=== PATIENT | female | born 1970 | race Caucasian/White ===

== ENCOUNTER 2017-04-17 05:59 | Emergency (ER) | payer SELFPAY ==
[2017-04-17 06:09] VITALS: BP 148/100
--- NOTE | 2017-04-17 06:29 | PHYS DOC ---
General Chief Complaint: SKIN PROBLEM Stated Complaint: DRY HANDS AND ALL OVER BODY Time Seen by MD: 06:04 Source: patient Exam Limitations: no limitations Problems: History of Present Illness Initial Comments Patient is a 47-year-old female who comes to the ED complaining of itchy dry hands. Patient states she is been diagnosed with eczema and has seen dermatology in the past she continues to use cerave topical moisturizer cream. She states this usually keeps her symptoms under control but recently her hands have become more dry and itchy and have begun cracking and bleeding at a few knuckles. She says typically a Medrol Dosepak and topical steroids help her symptoms. She does continue to smoke cigarettes and understands that this does not help her symptoms in any way. She denies any purulent discharge, worsening of pain, or other symptoms consistent with infection such as fever chills sweats or myalgias. Her tetanus is not up-to-date. Onset: other Severity: moderate Pain/Injury Location: bilateral hand, bilateral thumb, bilateral 2nd finger, bilateral 3rd finger, bilateral 4th finger, bilateral 5th finger, bilateral other Method of Injury: other Modifying Factors: improves with cold therapy Allergies: Coded Allergies: No Known Allergies (Verified Allergy, Unknown, 04/17/17) Past Medical History Medical History: other (COPD, eczema) Surgical History: noncontributory Social History Smoker: cigarettes Alcohol: occasionally Drugs: none Review of Systems Constitutional: denies chills, denies fever, denies malaise EENTM: denies nose congestion, denies throat swelling, denies mouth swelling Respiratory: denies cough, denies shortness of breath, denies wheezing Cardiovascular: denies chest pain, denies palpitations, denies syncope Gastrointestinal: denies abdominal pain, denies diarrhea, denies nausea, denies vomiting Skin: see HPI Psychiatric/Neurological: denies headache, denies numbness, denies paresthesia Physical Exam General Appearance: no apparent distress HEENT: normal ENT inspection Neck: non-tender, supple Cardiovascular/Respiratory: normal peripheral pulses, no respiratory distress Hand: no evidence of injury (dry scaly skin with mild erythema a few scabbed areas between the knuckles consistent with eczema exacerbation there is no evidence of active infection) Neurologic/Tendon: normal sensation, normal motor functions, normal tendon functions, responds to pain, no evidence tendon injury Psychiatric: alert, oriented x 3 Skin: warm/dry (hands as above) Departure Time of Disposition: 06:26 Disposition: 01 HOME, SELF-CARE Diagnosis: eczema, tobaccoism Condition: GOOD Patient Instructions: Eczema, Smoking Hazards, VIS, Tetanus, Diphtheria (Td); Tetanus, Diphtheria, Pertussis (Tdap) - [facility] [place] Additional Instructions: Stop smoking seek medical assistance as necessary. Continue topical moisturizers, (cerave). [id number] cetirizine for morning symptoms, may consider Benadryl at bedtime. Prescriptions: Triamcinolone 0.5% cream, prednisone 20 mg, hydroxyzine 25 mg Per discussion ED staff will provide you information regarding [facility] and [facility]. Use these resources for your follow-up visit and to establish an continue health maintenance. Follow-up with in one to 2 weeks for recheck. Return to the ED with new or changing symptoms MUNIRA SALOMON DO Apr 17, 2017 06:29
[2017-04-17] MEDS ORDERED: DIPHTH,PERTUSS(ACELL),TET TOX 0.5 ML DISP.SYRIN. VAX IM ONE (06:30)
== END 2017-04-17 06:45 | disposition home or self-care (01) ==
LOC: ER 05:59
DX: L30.9 Dermatitis, unspecified (principal); J44.9 Chronic obstructive pulmonary disease, unspecified; F17.210 Nicotine dependence, cigarettes, uncomplicated
CPT/HCPCS: 90471; 90715; 99283-25

== ENCOUNTER 2017-04-25 10:57 | Emergency (ER) | payer SELFPAY ==
--- NOTE | 2017-04-25 11:45 | ED.ADGEN ---
Past History Past Medical History: No Pertinent History Additional Past Medical Histor: chronic skin rashes Past Surgical History: No Surgical History Smoking: Cigarettes Alcohol Use: None Drug Use: None Social History Narrative: admits to trying methamphetamines in the past but denies any recent use Adult General Chief Complaint Chief Complaint Skin rash [facility] Patient is a 47 year old female who presents with chronic skin rash that's pruritic involving the face and upper and lower extremities she picks at multiple lesions this has been going on for weeks to months or longer. She was seen in the ED 1 week ago started on prednisone for 5 days which seemed to help at the symptoms are worsening again. The skin lesions look to be obviously related to possible methamphetamine use which she denies. There is some dry skin to the palms of the hands. Denies fever chills or sweats. Denies chest pain or shortness of breath. Denies any sick contacts. Review of Systems Review of Systems Constitutional: Denies fever or chills [] Eyes: Denies change in visual acuity, redness, or eye pain [] HENT: Denies nasal congestion or sore throat [] Respiratory: Denies cough or shortness of breath [] Cardiovascular: No additional information not addressed in HPI [] GI: Denies abdominal pain, nausea, vomiting, bloody stools or diarrhea [] : Denies dysuria or hematuria [] Musculoskeletal: Denies back pain or joint pain [] Integument: Denies rash or skin lesions [] Neurologic: Denies headache, focal weakness or sensory changes [] Endocrine: Denies polyuria or polydipsia [] Allergies Allergies Allergies Coded Allergies Type Severity Reaction Last Updated Verified No Known Allergies Allergy Unknown 04/17/17 Yes Physical Exam Physical Exam Constitutional: Well developed, appears much older than stated age, no acute distress, non-toxic appearance. [] HENT: Normocephalic, atraumatic, bilateral external ears normal, oropharynx moist, no oral exudates, nose normal. [] Eyes: PERRLA, EOMI, conjunctiva normal, no discharge. [] Neck: Normal range of motion, no tenderness, supple, no stridor. [] Cardiovascular:Heart rate regular rhythm, no murmur [] Lungs & Thorax: Bilateral breath sounds clear to auscultation [] Abdomen: Bowel sounds normal, soft, no tenderness, no masses, no pulsatile masses. [] Skin: Warm, dry, no erythema, multiple skin excoriations involving the upper and lower lower extremities and face consistent with methamphetamine abuse. Some dry skin to the palms of the hand with dried skin and irritated in the webspaces. [] Back: No tenderness, no CVA tenderness. [] Extremities: No tenderness, no cyanosis, no clubbing, ROM intact, no edema. [] Neurologic: Alert and oriented X 3, normal motor function, normal sensory function, no focal deficits noted. [] Psychologic: Affect normal, judgement normal, mood normal. [] EKG EKG [] Radiology/Procedures Radiology/Procedures [] Course & Med Decision Making Course & Med Decision Making Pertinent Labs and Imaging studies reviewed. (See chart for details) We will prescribe Benadryl and Elimite cream. [] Final Impression Final Impression Dermatitis, multiple skin lesions upper or lower extremities and face [] Problems: Dragon Disclaimer Dragon Disclaimer This electronic medical record was generated, in whole or in part, using a voice recognition dictation system. BUNNY FERREIRA MD Apr 25, 2017 11:45
[2017-04-25] MEDS ORDERED: HYDR99LO2 TP (11:54)
[2017-04-25] MEDS ORDERED: DIPH25CA58 PO (11:54)
[2017-04-25] MEDS ORDERED: PERM60CR11 TP (11:54)
[2017-04-25] MEDS ORDERED: diphenhydrAMINE HCL 25 MG CAPSULE PO ONE ×2 (11:59→12:30)
[2017-04-25 12:05] VITALS: BP 139/84
== END 2017-04-25 12:05 | disposition home or self-care (01) ==
LOC: ER 10:57
DX: L30.9 Dermatitis, unspecified (principal); L98.8 Other specified disorders of the skin and subcutaneous tissue; F17.210 Nicotine dependence, cigarettes, uncomplicated
CPT/HCPCS: 99284

== ENCOUNTER 2017-06-05 21:04 | Emergency (ER) | payer SELFPAY ==
[~2017-06-05 21:04] MED LIST: DIPH25CA58 PO; HYDR99LO2 TP; PERM60CR11 TP
--- NOTE | 2017-06-05 21:13 | PHYS DOC ---
Past History Past Medical History: Bronchitis Additional Past Medical Histor: chronic skin rashes Past Surgical History: , Other Smoking: Cigarettes Alcohol Use: None Drug Use: Marijuana Adult General Chief Complaint Chief Complaint: scab HPI HPI 47-year-old female presenting to the emergency department today with a scab on her face. She reports picking at it. It is not painful. She describes as mildly itchy. Location face. Duration constant. No alleviating or exacerbating factors. Review of systems is negative for chest pain shortness of breath nausea vomiting fevers chills diaphoresis confusion lethargy cyanosis. All other review of systems is negative unless otherwise noted in history of present illness. ED course: 47-year-old female presenting with a scab on her face. I recommended not scratching it and using lotion on it to follow-up with her doctor next few days. The patient was then discharged home in stable condition to follow up with their primary care physician over the next 2-3 days. They were to return if their symptoms worsened or if they were concerned for any reason. Face-to- face discharge instructions and return precautions were given. Patient's questions were answered to their satisfaction. Patient is comfortable plan. Review of Systems Review of Systems SEE ABOVE. Allergies Allergies Allergies Coded Allergies Type Severity Reaction Last Updated Verified No Known Allergies Allergy Unknown 04/17/17 Yes Physical Exam Physical Exam Constitutional: Well developed, well nourished, no acute distress, non-toxic appearance. [] HENT: Normocephalic, atraumatic, bilateral external ears normal, oropharynx moist, no oral exudates, nose normal. [] Small scab wound to the left cheek region. Eyes: PERRLA, EOMI, conjunctiva normal, no discharge. [] Neck: Normal range of motion, no tenderness, supple, no stridor. [] Cardiovascular:Heart rate regular rhythm, no murmur [] Lungs & Thorax: Bilateral breath sounds clear to auscultation [] Abdomen: Bowel sounds normal, soft, no tenderness, no masses, no pulsatile masses. [] Skin: Warm, dry, no erythema, no rash. [] Back: No tenderness, no CVA tenderness. [] Extremities: No tenderness, no cyanosis, no clubbing, ROM intact, no edema. [] Neurologic: Alert and oriented X 3, normal motor function, normal sensory function, no focal deficits noted. [] Psychologic: Affect normal, judgement normal, mood normal. [] EKG EKG [] Radiology/Procedures Radiology/Procedures [] Course & Med Decision Making Course & Med Decision Making Pertinent Labs and Imaging studies reviewed. (See chart for details) [] Dragon Disclaimer Dragon Disclaimer This chart was dictated in whole or in part using Voice Recognition software in a busy, high-work load, and often noisy Emergency Department environment. It may contain unintended and wholly unrecognized errors or omissions. Departure Departure: Impression: Primary Impression: Scab Additional Impression: Dry skin Disposition: HOME, SELF-CARE Condition: STABLE Referrals: PCP,NO (PCP) Patient Instructions: Vitamin E skin cream or oil Additional Instructions: Thank you for allowing us to participate in your care today. Followup with your primary care physician in 3 days if your symptoms do not improve. Call your Primary Doctor tomorrow and inform them of your visit today. If you do not have a primary care provider you can ask for a list of our primary care providers. Return to the emergency department you have any new or concerning findings. This should be evaluated by the primary care physician and any necessary consulting services for continued management within a few days after discharge. Return to emergency room if you have any new or concerning symptoms including but not limited to fever, chills, nausea, vomiting, intractable pain, any new rashes, chest pain, shortness of air, uncontrolled bleeding, difficulty breathing, and/or vision loss. Scripts Mupirocin (MUPIROCIN) 22 Gm Oint...g. 1 RICK TP TID, #22 GM Prov: CRISTIANO KUMAR MD 06/05/17 Problem Qualifiers CRISTIANO KUMAR MD Jun 05, 2017 21:13
[2017-06-05] MEDS ORDERED: MUPI22OI2 TP (21:16)
== END 2017-06-05 21:19 | disposition home or self-care (01) ==
LOC: ER 21:04
DX: R23.4 Changes in skin texture (principal); L85.3 Xerosis cutis; F17.210 Nicotine dependence, cigarettes, uncomplicated; F12.10 Cannabis abuse, uncomplicated
CPT/HCPCS: 99283

== ENCOUNTER 2017-08-31 03:09 | Emergency (ER) | payer SELFPAY ==
[2017-06-05 21:05] VITALS: BP 162/102
[~2017-08-31] VITALS: Ht 172.7 cm; Wt 95.9 kg
[~2017-08-31 03:09] MED LIST changes: +MUPI22OI2 TP
[2017-08-31] MEDS ORDERED: HYDR28CR62 TP (03:31)
[2017-08-31] MEDS ORDERED: CEPH-263 PO (03:31)
--- NOTE | 2017-08-31 03:31 | PHYS DOC ---
Past History Past Medical History: No Pertinent History Additional Past Medical Histor: chronic skin rashes Past Surgical History: Smoking: Cigarettes Alcohol Use: Occasionally Drug Use: None Adult General Chief Complaint Chief Complaint: SKIN RASH/ABSCESS HPI HPI Patient is a 47 year old F who presents with dry hands and hand pain bilaterally. Patient states that for years she's had dry hands however the past couple months as gotten severely bad. Tonight the pain was increasing therefore she's had a come the emergency room. Patient has no PCP. Patient denies any systemic symptoms such as fever or chills. Patient denies chest pain or shortness of breath. Patient states she's been trying to put lotion over them however has not been working. Patient has cracks in the webspace between the fingers. Patient is no other complaints. Review of Systems Review of Systems GEN: Denies fevers, chills, sweats HEENT: Denies blurred vision, sore throat CV: Denies chest pain RESP: Denies shortness of air, cough GI: Denies n/v/d NEURO: Denies confusion, dizziness MSK: Hand pain Allergies Allergies Allergies Coded Allergies Type Severity Reaction Last Updated Verified No Known Allergies Allergy Unknown 04/17/17 Yes Physical Exam Physical Exam GEN.: No apparent distress. Alert and oriented. HEENT: Head is normocephalic, atraumatic NECK: Supple. LUNGS: CTAB. HEART: RRR, S1, S2 present. Peripheral pulses intact ABDOMEN: Soft, nontender. Positive bowel sounds. EXTREMITIES: Without any cyanosis. NEUROLOGIC: Normal speech, normal tone PSYCHIATRIC: Normal affect, normal mood. HANDS: Both hands bilaterally have dry cracked skin with open sores between the webspaces and tenderness to palpation with slight erythema. No purulent discharge seen. No abscesses seen. Capillary refill of the fingers bilaterally less than 2 seconds. Patient states has fingernails are normal 10 fingers. Radial pulses palpated bilaterally. EKG EKG [] Radiology/Procedures Radiology/Procedures [] Course & Med Decision Making Course & Med Decision Making Pertinent Labs and Imaging studies reviewed. (See chart for details) ED course: Patient was seen and examined emergency room discussed the need to follow-up with PCP and be referred on to dermatology for further evaluation of her dry hands. MDM: After reviewing the chart, CC/HPI/PMH, physical exam, I do not believe the patient has a severe bacterial infection warranting further workup and/or admission at this time. I believe the patient stable for discharge with topical corticosteroid cream and we'll give the patient Keflex for possible cellulitis of her hands. Recommended follow-up with PCP and be referred on to a tower equipment repairer for further evaluation and management. Patient stable for discharge. Additional verbal discharge instructions were provided to the patient and that if symptoms get worse or any new symptoms arise that are worrisome to the patient she is to return to the emergency room immediately [] Dragon Disclaimer Dragon Disclaimer This chart was dictated in whole or in part using Voice Recognition software in a busy, high-work load, and often noisy Emergency Department environment. It may contain unintended and wholly unrecognized errors or omissions. Departure Departure: Impression: Primary Impression: Xeroderma Additional Impression: Hand pain Disposition: HOME, SELF-CARE Condition: STABLE Referrals: PCP,NO (PCP) Patient Instructions: Hand Dermatitis Additional Instructions: Please follow-up with your family physician in the next one to 2 days for referral to dermatology Scripts Hydrocortisone/Aloe Vera (Cortizone-10 1% Creme) 28 Gm Cream..g. 28 GM TP QID for 14 Days, #1 TUBE Prov: DANYEL BABIN DO 08/31/17 Cephalexin (KEFLEX) 250 Mg Capsule 1 CAP PO QID, #40 CAP Prov: DANYEL BABIN DO 08/31/17 Problem Qualifiers DANYEL BABIN DO Aug 31, 2017 03:31
== END 2017-08-31 03:35 | disposition home or self-care (01) ==
LOC: ER 03:09
DX: Q80.9 Congenital ichthyosis, unspecified (principal); M79.642 Pain in left hand; M79.641 Pain in right hand; F17.210 Nicotine dependence, cigarettes, uncomplicated
CPT/HCPCS: 99283

== ENCOUNTER 2021-02-06 00:15 | Emergency (ER) | payer SELFPAY ==
[~2021-02-06] VITALS: Ht 175.3 cm; Wt 106.2 kg
[~2021-02-06 00:15] MED LIST changes: +CEPH-263 PO; +HYDR28CR62 TP
--- NOTE | 2021-02-06 00:23 | PHYS DOC ---
Past History Past Medical History: No Pertinent History Additional Past Medical Histor: chronic skin rashes Past Surgical History: Smoking: Cigarettes Alcohol Use: Occasionally Drug Use: None Adult General HPI HPI Patient is a 51yo femlae presenting via POC for abdominal pain. Onset was earlier today. Nothing known makes better or worse. Patient reports epigastric/left-flank pain without known radiation. She has history of constipation but states this feels different. She has not taken anything for the pain.Has prior c-sections but no other abdominal surgeries. No fever, chills, CP, SHOB, dysuria, hematuria, nausea or diarrhea Review of Systems Review of Systems Fourteen body systems of review of systems have been reviewed. See HPI for pertinent positives and negative responses, other holliday all other systems are negative, non-pertinent or non-contributory Allergies Allergies Allergies Coded Allergies Type Severity Reaction Last Updated Verified No Known Allergies Allergy Unknown 04/17/17 Yes Physical Exam Physical Exam Constitutional: Well developed, well nourished, no acute distress, non-toxic appearance. HENT: Normocephalic, atraumatic, bilateral external ears normal, oropharynx moist, no oral exudates, nose normal. Eyes: PERRLA, EOMI, conjunctiva normal, no discharge. Neck: Normal range of motion, no tenderness, supple, no stridor. Cardiovascular: Heart rate regular, sinus rhythm, no murmurs rubs or gallops Lungs & Thorax: Bilateral breath sounds clear to auscultation Abdomen: Bowel sounds normal, soft, Epigastric tenderness without guarding or rebound, no masses, no pulsatile masses. Nonsurgical abdomen, no peritoneal signs Skin: Warm, dry, no erythema, no rash. Back: No tenderness, left CVA tenderness. Extremities: No tenderness, no cyanosis, no clubbing, ROM intact, no edema. Neurologic: Alert and oriented X 3, grossly normal motor & sensory function, no focal deficits noted. Psychologic: Affect normal, judgement normal, mood normal. Current Patient Data Vital Signs Vital Signs Date Time Temp Pulse Resp B/P (MAP) Pulse Ox O2 Delivery O2 Flow Rate FiO2 02/06/21 00:30 97.7 97 18 166/101 (122) 97 Room Air Vital Signs Date Time Temp Pulse Resp B/P (MAP) Pulse Ox O2 Delivery O2 Flow Rate FiO2 02/06/21 02:53 87 18 149/88 (108) 97 Room Air 02/06/21 00:30 97.7 Lab Results Laboratory Tests Test 02/06/21 00:50 02/06/21 01:43 White Blood Count 8.2 x10^3/uL (4.0-11.0) Red Blood Count 4.94 x10^6/uL (3.50-5.40) Hemoglobin 13.8 g/dL (12.0-15.5) Hematocrit 42.1 % (36.0-47.0) Mean Corpuscular Volume 85 fL (79-100) Mean Corpuscular Hemoglobin 28 pg (25-35) Mean Corpuscular Hemoglobin Concent 33 g/dL (31-37) Red Cell Distribution Width 14.8 % (11.5-14.5) Platelet Count 241 x10^3/uL (140-400) Neutrophils (%) (Auto) 61 % (31-73) Lymphocytes (%) (Auto) 27 % (24-48) Monocytes (%) (Auto) 9 % (0-9) Eosinophils (%) (Auto) 3 % (0-3) Basophils (%) (Auto) 1 % (0-3) Neutrophils # (Auto) 5.0 x10^3uL (1.8-7.7) Lymphocytes # (Auto) 2.2 x10^3/uL (1.0-4.8) Monocytes # (Auto) 0.7 x10^3/uL (0.0-1.1) Eosinophils # (Auto) 0.2 x10^3/uL (0.0-0.7) Basophils # (Auto) 0.1 x10^3/uL (0.0-0.2) Sodium Level 141 mmol/L (136-145) Potassium Level 3.8 mmol/L (3.5-5.1) Chloride Level 106 mmol/L (98-107) Carbon Dioxide Level 26 mmol/L (21-32) Anion Gap 9 (6-14) Blood Urea Nitrogen 15 mg/dL (7-20) Creatinine 0.8 mg/dL (0.6-1.0) Estimated GFR (Cockcroft-Gault) 75.6 BUN/Creatinine Ratio 19 (6-20) Glucose Level 101 mg/dL (70-99) Calcium Level 9.2 mg/dL (8.5-10.1) Total Bilirubin 0.3 mg/dL (0.2-1.0) Aspartate Amino Transf (AST/SGOT) 15 U/L (15-37) Alanine Aminotransferase (ALT/SGPT) 22 U/L (14-59) Alkaline Phosphatase 110 U/L (46-116) Troponin I Quantitative < 0.017 ng/mL (0-0.055) Total Protein 7.3 g/dL (6.4-8.2) Albumin 3.2 g/dL (3.4-5.0) Albumin/Globulin Ratio 0.8 (1.0-1.7) Lipase 113 U/L (73-393) Urine Collection Type Unknown Urine Color Colorless Urine Clarity Clear Urine pH 7.0 Urine Specific [place] 1.015 Urine Protein Neg (NEG-TRACE) Urine Glucose (UA) Neg mg/dL (NEG) Urine Ketones (Stick) Neg mg/dL (NEG) Urine Blood Neg (NEG) Urine Nitrite Neg (NEG) Urine Bilirubin Neg (NEG) Urine Urobilinogen Dipstick 0.2 mg/dL (0.2 mg/dL) Urine Leukocyte Esterase Neg (NEG) Urine RBC 0 /HPF (0-2) Urine WBC 0 /HPF (0-4) Urine Squamous Epithelial Cells None /LPF Urine Bacteria 0 /HPF (0-FEW) EKG EKG EKG ordered and interpreted by myself at 011 2 hours as sinus rhythm at 86 bpm, unremarkable intervals, no axis deviation, no acute ischemic findings, no STEMI Radiology/Procedures Radiology/Procedures PROCEDURE: CT ABD PELV W/ IV CONTRST ONLY CT abdomen and pelvis with contrast PQRS statement: CT scans at this facility use dose reduction including either automated exposure control, iterative reconstructions, and /or weight based radiation dosing via mA and kV modification when appropriate to reduce radiation dose to as low as reasonably achievable. HISTORY: Epigastric abdominal pain. Left flank pain. Contrast: 80 mL Isovue-370 intravenous contrast. Abdomen findings: Lung bases unremarkable. Thoracic and lumbar disc disease with disc bulges contributing to spinal canal stenoses lumbar spine. Liver, gallbladder, spleen, adrenal glands, kidneys and pancreas are unremarkable. There is a 2 cm fluid-filled 1 diverticulum protruding into the head of pancreas. Aortoiliac artery calcified plaque. No abdominal fluid or adenopathy. The appendix is negative. No obstruction or inflammation the GI tract. Pelvis findings: Uterus, ovaries, bladder, rectum and bones are unremarkable. IMPRESSION: No acute process. The appendix is negative. See above. Electronically signed by: Bill Crespo MD (02/06/2021 1:17 AM) [facility] [place] Heart Score C/O Chest Pain: No HEART Score for Chest Pain: HEART Score for Chest Pain Response (Comments) Value History Slighlty/Non-Suspicious 0 ECG Normal 0 Age >45 - < 65 1 Risk Factors 1 or 2 Risk Factors 1 Troponin < Normal Limit 0 Total 2 Risk Factors: Risk Factors: DM, Current or recent (<one month) smoker, HTN, HLP, family history of CAD, obesity. Risk Scores: Risk Factors: DM, Current or recent (<one month) smoker, HTN, HLP, family history of CAD, obesity. Course & Med Decision Making Course & Med Decision Making Afebrile hemodynamically stable patient. HPI, PE and ER workup non-concerning for emergent/surgical pathology Supportive care advised with close outpatient follow-up. Discussed most likely diagnosis of constipation. Strict return precautions discussed with good understanding. All questions and concerns addressed prior to departure Dragon Disclaimer Dragon Disclaimer This electronic medical record was generated, in whole or in part, using a voice recognition dictation system. Departure Departure: Impression: Primary Impression: Unspecified abdominal pain Additional Impression: Elevated blood pressure reading without diagnosis of hypertension Disposition: 01 DC HOME SELF CARE/HOMELESS Condition: STABLE Referrals: PCP,NO (PCP) Patient Instructions: Abdominal Pain (Nonspecific) Additional Instructions: You have been evaluated in the Emergency Department today for abdominal pain. Your evaluation was not suggestive of any emergent condition requiring medical intervention at this time. However, some abdominal problems make take more time to appear. Therefore, it is important for you to watch for any new symptoms or worsening of your current condition. Please follow-up with your primary care physician first thing this upcoming week for repeat evaluation. Your symptoms do not improve it might be beneficial to discuss need for outpatient gastroenterology referral In addition, your blood pressure was high. It is hard to tell if it was the stress and anxiety of coming to the ER and/or pain of current condition causing it to be elevated. Please keep a detailed log daily for review when you see your primary care physician Return to the Emergency Department if you experience worsening pain, persistent fevers greater than 100.4, recurrent vomiting, blood in vomit, blood in stool, dark tarry stool, chest pain, difficulty breathing, or any other concerning symptoms. Problem Qualifiers VICTOR MANUEL GAMBINO DO Feb 06, 2021 00:23
[2021-02-06] MEDS ORDERED: ASPIRIN 325 MG TABLET ONE (00:47)
[2021-02-06] MEDS ORDERED: MORPHINE SULFATE 4 MG/ML DISP.SYRIN. ONE (00:54)
[2021-02-06] MEDS ORDERED: CONTRAST GIVEN. MC PRN (01:00)
[2021-02-06] MEDS ORDERED: MORPHINE SULFATE 4 MG/ML DISP.SYRIN. IV ONE (01:00)
[2021-02-06] MEDS ORDERED: IOHEXOL 300 MG/ML 75 ML VIAL. IV ONE (01:00)
[2021-02-06] MEDS ORDERED: ASPIRIN CHEWABLE 81 MG TABLET. PO ONE (01:00)
--- NOTE | 2021-02-06 01:19 | RAD ---
CT abdomen and pelvis with contrast PQRS statement: CT scans at this facility use dose reduction including either automated exposure cont rol, iterative reconstructions, and /or weight based radiation dosing via mA and kV modification when appropriate to reduce radiation dose to as low as reasonably achievable. HISTORY: Epigastric abdominal pain. Left flank pain. Contrast: 80 mL Isovue-370 intravenous contrast. Abdomen findings: Lung bases unremarkable. Thoracic and lumbar disc disease with disc bulges contribu ting to spinal canal stenoses lumbar spine. Liver, gallbladder, spleen, adrenal glands, kidneys and p ancreas are unremarkable. There is a 2 cm fluid-filled 1 diverticulum protruding into the head of null creas. Aortoiliac artery calcified plaque. No abdominal fluid or adenopathy. The appendix is negative . No obstruction or inflammation the GI tract. Pelvis findings: Uterus, ovaries, bladder, rectum and bones are unremarkable. IMPRESSION: No acute process. The appendix is negative. See above. Electronically signed by: Bill Crespo MD (02/06/2021 1:17 AM) [facility]
--- NOTE | 2021-02-06 01:28 | EKG ---
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
[2021-02-06 01:38] LABS: BASO # 0.1 x10^3/uL (0.0-0.2); BASO % 1 % (0-3); EOS # 0.2 x10^3/uL (0.0-0.7); EOS % 3 % (0-3); HEMATOCRIT 42.1 % (36.0-47.0); HEMOGLOBIN 13.8 g/dL (12.0-15.5); LYMPH # 2.2 x10^3/uL (1.0-4.8); LYMPH % 27 % (24-48); MEAN CORPUSCULAR HEMOGLOBIN 28 pg (25-35); MEAN CORPUSCULAR HGB CONC 33 g/dL (31-37); MEAN CORPUSCULAR VOLUME 85 fL (79-100); MONO # 0.7 x10^3/uL (0.0-1.1); MONO % 9 % (0-9); NEUT % 61 % (31-73); PLATELET COUNT 241 x10^3/uL (140-400); RED BLOOD COUNT 4.94 x10^6/uL (3.50-5.40); RED CELL DISTRIBUTION WIDTH 14.8 % (11.5-14.5); WHITE BLOOD COUNT 8.2 x10^3/uL (4.0-11.0)
[2021-02-06 01:42] LABS: CALCIUM 9.2 mg/dL (8.5-10.1); CREATININE 0.8 mg/dL (0.6-1.0); GFR 75.6; POTASSIUM 3.8 mmol/L (3.5-5.1)
[2021-02-06 01:55] LABS: ALBUMIN 3.2 g/dL (3.4-5.0); ALBUMIN/GLOBULIN RATIO 0.8 (1.0-1.7); TOTAL BILIRUBIN 0.3 mg/dL (0.2-1.0); TOTAL PROTEIN 7.3 g/dL (6.4-8.2)
[2021-02-06 02:38] LABS: BACTERIA,URINE 0 /HPF (0-FEW); BILIRUBIN,URINE NEG (NEG); CLARITY,URINE CLEAR; COLOR,URINE COLORLESS; GLUCOSE,URINE NEG (NEG); NITRITE,URINE NEG (NEG); RBC,URINE 0 /HPF (0-2); UROBILINOGEN,URINE 0.2 mg/dL (0.2 mg/dL); WBC,URINE 0 /HPF (0-4)
[2021-02-06 02:53] VITALS: BP 149/88
== END 2021-02-06 02:50 | disposition home or self-care (01) ==
LOC: ER 00:15
DX: R10.13 Epigastric pain (principal); R03.0 Elevated blood-pressure reading, without diagnosis of hypertension; F17.210 Nicotine dependence, cigarettes, uncomplicated; Z98.890 Other specified postprocedural states
CPT/HCPCS: 36415; 74177; 80053; 81001; 83690; 84484; 85025; 93005; 96374; 99285; J2270; Q9967

== ENCOUNTER → 2021-12-24 | Outpatient (CLI) | payer OTHER ==
--- NOTE | 2021-12-27 16:34 | RAD ---
Bilateral digital screening 2-D and 3-D (digital breast tomosynthesis) mammogram: Reason for examination: Routine screening. Comparison: Mammograms from 12/12/2017 and 07/03/2014. Interpretation was made with the benefit of CAD. FINDINGS: Breast density: Category B. There are scattered areas of fibroglandular density. There is a single view asymmetry in the right axillary tail region, measuring about 9 mm, located onur roximately 13 cm from the nipple. No other evidence for breast mass is seen. No malignant appearing c alcifications, or architectural distortion is seen. IMPRESSION: Asymmetry in the right axillary tail region. Further evaluation with a diagnostic right mammogram is recommended. If this persists and does not represent a benign lymph node, targeted right breast ultra sound would also be helpful. Assessment: BI-RADS 0. Incomplete. Recommendation: Diagnostic right mammogram. If needed, targeted right breast ultrasound. The patient will receive a letter with the results in the mail. Patient information will be entered i nto the mammography reminder system with a target recall date for the next mammogram. A reminder alex er will be generated. Electronically signed by: Radha Grier MD (12/27/2021 4:32 PM) [id number]
== END ==
LOC: MAMMO 10:26
PROVIDERS: ATTEND Physician Assistant Medical
DX: Z12.31 Encounter for screening mammogram for malignant neoplasm of breast (principal)
CPT/HCPCS: 77063; 77067

== ENCOUNTER → 2022-01-21 | Outpatient (CLI) | payer OTHER ==
--- NOTE | 2022-01-21 14:13 | RAD ---
RIGHT DIAGNOSTIC 2-D AND 3-D MAMMOGRAPHY History: Abnormal screening mammogram. Comparison: Bilateral mammogram December 24, 2021 and prior years. Technique: Right true lateral, XCCL, and spot compression MLO digital mammogram views were obtained. Right true lateral and MLO tomosynthesis digital views were obtained. Findings: Breast Tissue Density B : There are scattered areas of fibroglandular density. The small asymmetry in the axillary tail region is no longer identified on the additional views. Ther e are a couple of benign calcifications. IMPRESSION: The small asymmetry in the axillary tail resolves with additional mammogram views. Recommend return t o routine mammogram screening. BI-RADS category 2: Benign findings. The images were reviewed with computer-aided detection. Patient information is entered into the reminder system with a target due date for the next screening mammogram. Mammography is the most sensitive method for finding small breast cancers, but it does not detect the m all and is not a substitute for careful clinical examination. A negative mammogram does not negate a clinically suspicious finding and should not result in delay in biopsying a clinically suspicious a bnormality. "Our facility is accredited by the [employer] Mammography Program." Electronically signed by: Siva Johnson MD (01/21/2022 2:10 PM) [id number]
== END ==
LOC: MAMMO 13:11
PROVIDERS: ATTEND Physician Assistant Medical
DX: R92.2 Inconclusive mammogram (principal)
CPT/HCPCS: 77065; G0279; 77061

== ENCOUNTER → 2022-03-07 | Outpatient (CLI) | payer OTHER ==
[2022-03-07 13:21] LABS: ALBUMIN 3.1 g/dL (3.4-5.0); ALBUMIN/GLOBULIN RATIO 0.8 (1.0-1.7); CALCIUM 8.9 mg/dL (8.5-10.1); CREATININE 0.9 mg/dL (0.6-1.0); GFR 65.8; POTASSIUM 4.4 mmol/L (3.5-5.1); TOTAL BILIRUBIN 0.4 mg/dL (0.2-1.0); TOTAL PROTEIN 6.8 g/dL (6.4-8.2)
[2022-03-07 13:26] LABS: BASO # 0.1 x10^3/uL (0.0-0.2); BASO % 1 % (0-3); EOS # 0.4 x10^3/uL (0.0-0.7); EOS % 5 % (0-3); HEMATOCRIT 42.4 % (36.0-47.0); HEMOGLOBIN 13.9 g/dL (12.0-15.5); LYMPH # 2.2 x10^3/uL (1.0-4.8); LYMPH % 28 % (24-48); MEAN CORPUSCULAR HEMOGLOBIN 28 pg (25-35); MEAN CORPUSCULAR HGB CONC 33 g/dL (31-37); MEAN CORPUSCULAR VOLUME 85 fL (79-100); MONO # 0.6 x10^3/uL (0.0-1.1); MONO % 8 % (0-9); NEUT # 4.5 x10^3uL (1.8-7.7); NEUT % 58 % (31-73); PLATELET COUNT 252 x10^3/uL (140-400); RED BLOOD COUNT 4.99 x10^6/uL (3.50-5.40); RED CELL DISTRIBUTION WIDTH 15.7 % (11.5-14.5); WHITE BLOOD COUNT 7.8 x10^3/uL (4.0-11.0)
--- NOTE | 2022-03-07 13:29 | RAD ---
AP and Lateral Views of the Chest 03/07/2022 12:58 PM Indication: Reason: THERAPEUTIC DRUG MONITORING, ECZEMA Comparison: Chest radiograph August 26, 2015 Findings: There is no focal consolidation or infiltrate identified. The cardiomediastinal silhouette is within normal limits. There is no evidence of pneumothorax or pleural effusion. No acute osseous a bnormalities are identified. Impression: No evidence of acute cardiopulmonary process. Electronically signed by: Cesar Lloyd MD (03/07/2022 1:27 PM) [id number]
== END ==
LOC: RAD 12:22
PROVIDERS: ATTEND Physician Assistant
DX: Z51.81 Encounter for therapeutic drug level monitoring (principal); L30.9 Dermatitis, unspecified
CPT/HCPCS: 36415; 71046; 80053; 85025; 86481; 86705; 86709; 86803; 87340